=== PATIENT | female | born 1975 | race Caucasian/White ===

== ENCOUNTER 2017-09-24 15:34 | Emergency (ER) | payer MEDICAID ==
[~2017-09-24] VITALS: Ht 172.7 cm; Wt 95.2 kg
[~2017-09-24 15:34] MED LIST: ALBU90OI INH; ALBU90OI6 INH; ALBU90OI61 INH; Augmentin 875-1 EACH PO; BENZ100A PO; Bactrim Ds Tab1 EACH PO; CEPH500 PO; CODGUAEL PO; CYCL10 PO; DOXY100 PO; GUAI600ER PO; HYDACE5 PO; Monodox100 MG PO; NITR100CA PO; Norco 5-325 Ta1 EACH PO; RXTRAM50 PO; TRAM50 PO
[2017-09-24] MEDS ORDERED: MELO7.5 PO (15:38)
[2017-09-24] MEDS ORDERED: NYST237S MT (16:02)
== END 2017-09-24 16:09 | disposition home or self-care (01) ==
LOC: ER 15:34
DX: J02.9 Acute pharyngitis, unspecified (principal); Z79.899 Other long term (current) drug therapy
CPT/HCPCS: 87081; 87430; 99283; J1100

== ENCOUNTER → 2020-05-18 | Outpatient (CLI) | payer BC ==
[~2020-05-18] MED LIST changes: +MELO7.5 PO; +NYST237S MT
[2020-05-22 16:11] LABS: HPV 16 Negative (Negative); HPV 18 Negative (Negative); HPV OTHER HR TYPES Negative (Negative)
== END ==
LOC: LAB SHORT 13:30 → LAB 13:30 → LAB FUT 05-18 15:05 → EDSTATUS 05-18 15:05
PROVIDERS: Nurse Practitioner Family
DX: Z01.419 Encounter for gynecological examination (general) (routine) without abnormal findings (principal)
CPT/HCPCS: 87624; G0123

== ENCOUNTER → 2023-03-30 | Outpatient (CLI) | payer BC ==
[2023-03-30 14:02] LABS: Albumin, Blood 3.3 g/dL (3.4-5.0); Albumin/Globulin Ratio 0.8 (0.8-1.8); Bilirubin, Total 0.3 mg/dL (0.1-1.0); Bun/Creatinine Ratio 18.7 (12.0-20.0); Calcium, Blood 8.9 mg/dL (8.5-10.1); Creatinine, Blood 0.64 mg/dL (0.40-1.00); Globulin, Blood 4.1 g/dL (2.2-4.0); Potassium, Blood 4.1 mmol/L (3.5-5.5); Total Protein, Blood 7.4 g/dL (6.4-8.2)
== END ==
LOC: LAB 12:02 → LAB SHORT 12:02
PROVIDERS: Nurse Practitioner Family
DX: E11.8 Type 2 diabetes mellitus with unspecified complications (principal)
CPT/HCPCS: 80053; 83036

== ENCOUNTER → 2024-03-11 | Outpatient (CLI) | payer BC | END | disposition home or self-care (01) | LOC: LAB 13:07 → LAB SHORT 13:07 | DX: E11.42 Type 2 diabetes mellitus with diabetic polyneuropathy (principal); L65.9 Nonscarring hair loss, unspecified | CPT/HCPCS: 83036; 84443 ==

== ENCOUNTER → 2024-09-23 | Outpatient (CLI) | payer BC ==
[2024-09-23 17:13] LABS: Bacterial Vaginosis PCR Negative (NEGATIVE); Candida Group, PCR NOT DETECTED (NOT DETECT); Candida glabrata-krusei, PCR NOT DETECTED (NOT DETECT)
[2024-09-28 15:16] LABS: HPV HIGH RISK BY TMA Not Detected; HPV SOURCE Cervical
== END ==
LOC: LAB SHORT 15:28 → LAB 15:28
PROVIDERS: General Practice
DX: Z12.4 Encounter for screening for malignant neoplasm of cervix (principal); N89.8 Other specified noninflammatory disorders of vagina
CPT/HCPCS: 81515; 87624; G0123